=== PATIENT | female | born 1985 | race American Indian/Alaskan Native ===

== ENCOUNTER 2020-11-25 18:06 | Emergency (ER) | payer SELFPAY ==
[2020-11-25 18:23] VITALS: BP 102/75
[2020-11-25] MEDS ORDERED: IBUPROFEN 600 MG TAB PO ONE (18:44)
[2020-11-25] MEDS ORDERED: ACETAMINOPHEN 500 MG TAB PO ONE (18:44)
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
== END 2020-11-25 20:30 | disposition home or self-care (01) ==
LOC: ED 18:06
DX: S46.911A Strain of unspecified muscle, fascia and tendon at shoulder and upper arm level, right arm, initial encounter (principal); Z79.899 Other long term (current) drug therapy; V49.49XA Driver injured in collision with other motor vehicles in traffic accident, initial encounter; Y92.410 Unspecified street and highway as the place of occurrence of the external cause; Y93.89 Activity, other specified; Y99.8 Other external cause status
CPT/HCPCS: 72100